=== PATIENT | male | born 1980 | race American Indian/Alaskan Native ===

== ENCOUNTER 2017-09-09 02:12 | Emergency (ER) | payer OTHER ==
[2017-09-09 02:14] VITALS: BMI 26.4
[2017-09-09 02:30] VITALS: BP 144/87; PULSE 97; RESP 18; TEMP 98.4; O2SAT 97
--- NOTE | 2017-09-09 02:38 | ED PDOC ---
Arrival/HPI - General Time Seen by Provider: 09/09/17 02:15 Historian: Patient - History of Present Illness Narrative History of Present Illness (Text): 09/09/17 02:33 Ronald Le is a 37 year old male, whose past medical history includes tendonitis, who presents to the Emergency department complaining of left toe/ foot pain. Patient states he had an episode of left foot pain 3 days prior, which resolved on its own but then developed left toe pain with mild swelling tonight. Patient states symptoms are similar to previous episode of tendonitis. Patient denies any decreased range of motion, weakness/numbness/tingling in the extremity, recent trauma/injury, or any other complaints. Time/Duration: < week (3 days) Symptom Onset: Gradual Symptom Course: Unchanged Activities at Onset: Light Context: Home Past Medical History - Provider Review Nursing Documentation Reviewed: Yes - Past Medical History Past Medical History: No Previous - Psychiatric Hx Depression: No Hx Emotional Abuse: No Hx Physical Abuse: No Hx Substance Use: No - Past Surgical History Past Surgical History: No Previous - Suicidal Assessment Feels Threatened In Home Enviroment: No Family/Social History - Physician Review Nursing Documentation Reviewed: Yes Family/Social History: Unknown Family HX Smoking Status: n Hx Alcohol Use: Yes Hx Substance Use: No Allergies/Home Meds Allergies/Adverse Reactions: Allergies No Known Allergies Allergy (Verified 02/17/14 05:36) Review of Systems - Physician Review All systems were reviewed & negative as marked: Yes - Review of Systems Constitutional: Normal. absent: Fevers Eyes: Normal ENT: Normal Respiratory: Normal. absent: SOB, Cough Cardiovascular: Normal. absent: Chest Pain Gastrointestinal: Normal. absent: Abdominal Pain, Diarrhea, Nausea, Vomiting Genitourinary Male: Normal. absent: Dysuria, Frequency, Hematuria, Urinary Output Changes Musculoskeletal: Arthralgias (+left toe pain). absent: Back Pain, Neck Pain Skin: Normal. absent: Rash Neurological: Normal. absent: Headache, Dizziness Endocrine: Normal Hemo/Lymphatic: Normal Psychiatric: Normal Physical Exam Vital Signs Reviewed: Yes Vital Signs Temp Pulse Resp BP Pulse Ox 09/09/17 02:30 98.4 F 97 H 18 144/87 97 Temperature: Afebrile Blood Pressure: Normal Pulse: Regular Respiratory Rate: Normal Appearance: Positive for: Well-Appearing, Non-Toxic, Comfortable Pain Distress: None Mental Status: Positive for: Alert and Oriented X 3 - Systems Exam Head: Present: Atraumatic, Normocephalic Pupils: Present: PERRL Extroacular Muscles: Present: EOMI Conjunctiva: Present: Normal Mouth: Present: Moist Mucous Membranes Lower Extremity: Present: NORMAL PULSES, Normal ROM, Tenderness (Tenderness over left 1st digit MTP), Swelling (Swelling over left 1st digit MTP), Neurovascularly Intact, Capillary Refill < 2 s. No: Edema, CALF TENDERNESS, Erythema, Deformity, Temperature Abnormalties Neurological: Present: GCS=15, CN II-XII Intact, Speech Normal Skin: Present: Warm, Dry, Normal Color. No: Rashes Psychiatric: Present: Alert, Oriented x 3, Normal Insight, Normal Concentration Medical Decision Making ED Course and Treatment: 09/09/17 02:33 Impression: 37 year old male complaining of left foot/toe pain x 3 days. Differential Diagnosis included but are not limited to: tendonitis vs. Gout vs. muscular strain Plan: -- XR Left Foot -- Indocin -- Reassess and disposition Progress Notes: 09/09/17 03:00 Reviewed radiology, XR Left Foot shows no acute processes. On re-evaluation, patient feels better and is in no acute distress. I have discussed the results and plan with the patient, who expresses understanding. Patient in agreement with plan to be discharged home. Patient is stable for discharge. Patient was instructed to follow up with physician or return if symptoms worsen or new concerning symptoms arise. 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 No Sleep Is patient sleeping during reassessment? No Presence of Pain Presence of Pain Yes Pain Scale Used Pain Scale Used Numeric Location Left, Right or Bilateral Left Pain Location Body Site Great Toe Description Description Sharp Intensity of Pain at present 6 Acceptable Level of Pain 1 Pain Behavior Irritability Aggravating Factors ADL's Alleviating Factors/Management Medication Techniques Alleviating Factors Medication - Scribe Statement The provider has reviewed the documentation as recorded by the Shanae Regalado Provider Scribe Attestation: All medical record entries made by the Scribe were at my direction and personally dictated by me. I have reviewed the chart and agree that the record accurately reflects my personal performance of the history, physical exam, medical decision making, and the department course for this patient. I have also personally directed, reviewed, and agree with the discharge instructions and disposition. Disposition/Present on Arrival - Present on Arrival Any Indicators Present on Arrival: No History of DVT/PE: No History of Uncontrolled Diabetes: No Urinary Catheter: No History of Decub. Ulcer: No History Surgical Site Infection Following: None - Disposition Have Diagnosis and Disposition been Completed?: Yes Diagnosis: Gout Disposition: HOME/ ROUTINE Disposition Time: 03:00 Condition: GOOD Discharge Instructions (ExitCare): Gout, Gout (DC) Prescriptions: Indomethacin [Indocin] 25 mg PO TID #21 cap Forms: Pressy (Grenadian)
--- NOTE | 2017-09-09 08:19 | RAD ---
PROCEDURE: Left Foot Radiographs. HISTORY: Pain COMPARISON: None. FINDINGS: BONES: Bone alignment and mineralization are normal. There is no acute fracture or bone destruction. JOINTS: Normal. SOFT TISSUES: Normal. OTHER FINDINGS: None. IMPRESSION: No acute fracture or dislocation.
== END 2017-09-09 03:05 | disposition home or self-care (01) ==
LOC: ED 02:12
DX: M10.9 Gout, unspecified (principal)